=== PATIENT | male | born 1950 | race Caucasian/White ===

== ENCOUNTER → 2016-04-22 | Outpatient (CLI) | payer BC ==
[2016-01-09 14:15] VITALS: BP 168/105
[~2016-04-22] MED LIST: AMLO5TAB4 PO; ASPI81TA2 PO; CITA20TA9 PO; Ibuprofen PO; LISI10TA2 PO; LISI40TA PO; QUET50TA5 PO
--- NOTE | 2016-04-22 14:17 | KCIC ---
PROCEDURE Chest CT without contrast HISTORY History of smoking for 30 years. COPD. TECHNIQUE Noncontrast helical CT scanning of the chest was performed. One or more of the following individualized dose reduction techniques were utilized for this study: 1. Automated exposure control 2. Adjustment of the mA and/or kV according to patient size 3. Use of iterative reconstruction technique COMPARISON November 04, 2013. FINDINGS Mediastinal lymph nodes are stable. No enlarging thoracic lymphadenopathy is evident. Calcified lymph nodes are seen in the subcarinal region and right hilar region due to old granulomatous disease. No focal aneurysmal dilatation of the thoracic aorta is seen. Heart size is normal and no pericardial effusion is seen. 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 No adrenal mass is evident. Upper pole right renal cyst is seen. Centrilobular emphysema is seen. This is more prominent within the upper lobes bilaterally. The proximal bronchial tree is patent. No pleural effusion or pneumothorax is seen. No lung consolidation or lung mass is seen. The previously seen posterior lower lobe lung infiltrates have resolved. No osteolytic process is seen. IMPRESSION No acute lung infiltrate. Bilateral emphysema. Mild calcified atheromatous disease of left coronary artery. Normal heart size. Electronically signed by: Tio Astudillo MD (Apr 22, 2016 14:15:41)
== END | disposition home or self-care (01) ==
LOC: KCIC CT 11:33
PROVIDERS: ATTEND Family Medicine
DX: R93.5 Abnormal findings on diagnostic imaging of other abdominal regions, including retroperitoneum (principal); J43.9 Emphysema, unspecified; I25.10 Atherosclerotic heart disease of native coronary artery without angina pectoris
CPT/HCPCS: 71250